=== PATIENT | male | born 1955 | race Caucasian/White ===

== ENCOUNTER 2018-10-14 12:58 | Observation (INO) | payer OTHER ==
[~2018-10-14] VITALS: Ht 160 cm; Wt 89.8 kg
[~2018-10-14 12:58] MED LIST: CIPR500T4 PO; TAMS-14 PO
[2018-10-14] MEDS ORDERED: IPRATROPIUM (NEB) 0.5 MG/2.5 ML AMP INH STA (13:25)
[2018-10-14] MEDS ORDERED: ALBUTEROL 0.083% (NEB) 2.5 MG/3 ML AMP INH STA (13:25)
--- NOTE | 2018-10-14 13:30 | ERD ---
ER Documentation Chief Complaint Chief Complaint cough, shortness of breath x 9 days HPI This is a 63-year-old male with a past medical history of hypertension [id number] diabetes mellitus and benign prostatic hypertrophy. The patient presents to the emergency department complaining of shortness of breath for the past 9 days. The patient indicates that he has had no recent travel or prolonged immobilization. He denies any swelling of his lower extremities and no calf tenderness. The patient indicates that he is unable to walk more than several steps before becoming short of breath. He also stated he had a pro ductive cough at the onset of his symptoms and coughed up a small amount of blood. However he states the hemoptysis has completely resolved as there was only one day that this occurred. He went to see his primary care physician at the onset of his symptoms. He been placed on promethazine and a Z-Arsen. Indicates however that this has not improved his shortness of breath. He had an outpatient chest radiograph performed 4 days ago with no results yet. He phoned his primary care physician but was unable to get in. Therefore he came to the emergency department as he states his symptoms have worsened. The patient does not smoke tobacco. He denies any melanotic stools or hemoptysis. He has been compliant with his medications. He said no fevers or shaking or chills. ROS All systems reviewed and are negative except as per history of present illness. Medications Home Meds Reported Medications Finasteride* (Finasteride*) 5 Mg Tablet, 5 MG PO DAILY, TAB 10/14/18 Atorvastatin Calcium (Atorvastatin Calcium) 10 Mg Tablet, 10 MG PO QHS, #30 TAB 10/14/18 Spironolactone* (Aldactone*) 25 Mg Tablet, 25 MG PO DAILY, #30 TAB 10/14/18 Potassium Chloride* (Potassium Chloride*) 20 Meq Tablet.er, 20 MEQ PO DAILY, TAB.SA 10/14/18 Furosemide* (Furosemide*) 40 Mg Tablet, 40 MG PO DAILY, TAB 10/14/18 Omeprazole* (Omeprazole*) 40 Mg Capsule.dr, 40 MG PO DAILY, #30 CAP 10/14/18 Carvedilol* (Carvedilol*) 6.25 Mg Tablet, 6.25 MG PO BID, #60 TAB 10/14/18 Terazosin Hcl* (Terazosin Hcl*) 10 Mg Capsule, 10 MG PO HS, CAP 10/14/18 Glimepiride* (Glimepiride*) 4 Mg Tablet, 4 MG PO WITH BREAKFAST, TAB 10/14/18 Metformin Hcl* (Metformin Hcl*) 1,000 Mg Tablet, 1000 MG PO WITH BREAKFAST DINNE, #60 TAB 10/14/18 Discontinued Scripts Tamsulosin Hcl* (Flomax*) 0.4 Mg Cap.er.24h, 0.4 MG PO QPM, #30 CAP Prov:NATALIIA MALONE MD 06/05/18 Ciprofloxacin Hcl* (Ciprofloxacin Hcl*) 500 Mg Tablet, 500 MG PO BID for 5 Days, TAB Prov:NATALIIA MALONE MD 06/05/18 Allergies Allergies: Coded Allergies: No Known Allergy (Unverified , 10/14/18) PMhx/Soc History of Surgery: No Anesthesia Reaction: No Hx Neurological Disorder: No Hx Respiratory Disorders: No Hx Cardiac Disorders: No Hx Psychiatric Problems: No Hx Miscellaneous Medical Probl: No Hx Alcohol Use: No Hx Substance Use: No Smoking Status: Never smoker Physical Exam Vitals Vital Signs Date Temp Pulse Resp B/P (MAP) Pulse Ox O2 O2 Flow FiO2 Time Delivery Rate 10/14/18 92 20 144/95 98 Nasal 2.0 17:16 (111) Cannula 10/14/18 Nasal 2 15:15 Cannula 10/14/18 87 20 131/91 96 Nasal 2.0 15:05 (104) Cannula 10/14/18 98 18 96 21 13:43 10/14/18 98.4 94 20 133/68 98 13:08 (89) Physical Exam Constitutional:Well-developed. Well-nourished. Patient in mild respiratory distress HEENT:Normocephalic. Atraumatic.Pupils were equal round reactive to light. Moist mucous membranes.No tonsillar exudates. Neck: No nuchal rigidity. No lymphadenopathy. No posterior cervical spine tenderness or step-offs. Respiratory: Not using accessory muscles of respiration.Lungs were clear to auscultation bilaterally. Bilateral rhonchi. No rales. No wheezing Cardiovascular: Regular rate regular rhythm.No murmurs. No rubs were appreciat ed.S1, S2 normal. Distal pulses are palpable 2+ bilaterally. GI: Abdomen was soft. Nontender. Non Distended. No pulsatile abdominal masses or bruits. No rebound. No guarding. Bowel sounds were present and normal. Muscle skeletal: Full range of motion of both the upper and lower extremities bilaterally.Normal muscle tone.No assymetrical calf tenderness or swelling. Skin: No petechia, no purpura. No lesions on the palms or the soles of the feet. No maculopapular rash. NEURO: Patient was alert, awake, orientated x3.No facial droop. Gait observed and normal with no ataxia.Speech had regular rate and rhythm. No focal neurological deficits. Result Diagram: 10/14/18 1334 10/14/18 1334 Results 24 hrs Laboratory Tests Test 10/14/18 13:25 10/14/18 13:34 10/14/18 15:48 Blood Gas Specimen Source Blood arterial Arterial Blood Date 10/14/2018 1:40:11 PM Drawn Arterial Blood pH 7.477 (Temp corrected) Arterial Blood pCO2 31.5 mmhg (Temp correct) Arterial Blood pO2 66.5 mmHG (Temp corrected) Arterial Blood HCO3 22.8 mmol/L Arterial Blood Base -0.1 mmol/L Excess Arterial Blood 92.4 mmHG Oxygen Saturation Wilfredo Test N/A Arterial Blood Gas Right Brachial Puncture Site Arterial 0.2 % Blood Carboxyhemoglobin Arterial Blood 0.3 % Methemoglobin Blood Gas A-a O2 45.5 mmHg Differential Oxyhemoglobin Percent 91.9 % Blood Gas Temperature 37.0 C Blood Gas Modality ROOM AIR FiO2 21.0 % Blood Gas Notified Whom TM Blood Gas Notified Time 10/14/2018 1:48:51 PM White Blood Count 8.1 10^3/ul Red Blood Count 4.12 10^6/ul Hemoglobin 10.6 g/dl Hematocrit 34.2 % Mean Corpuscular Volume 83.0 fl Mean Corpuscular 25.7 pg Hemoglobin Mean Corpuscular 31.0 g/dl Hemoglobin Concent Red Cell Distribution 17.5 % Width Platelet Count 328 10^3/UL Mean Platelet Volume 8.9 fl Immature Granulocytes % 0.500 % Neutrophils % 82.0 % Lymphocytes % 10.6 % Monocytes % 5.9 % Eosinophils % 0.6 % Basophils % 0.4 % Nucleated Red Blood Cells 0.0 /100WBC % Immature Granulocytes # 0.040 10^3/ul Neutrophils # 6.6 10^3/ul Lymphocytes # 0.9 10^3/ul Monocytes # 0.5 10^3/ul Eosinophils # 0.1 10^3/ul Basophils # 0.0 10^3/ul Nucleated Red Blood Cells 0.0 10^3/ul # Prothrombin Time 13.1 Sec Prothrombin Time Ratio 1.0 INR International 0.98 Normalized Ratio Activated 29.0 Sec Partial Thromboplast Time D-Dimer 1653.13 ng/ml D-Dimer Comment Sodium Level 147 mmol/L Potassium Level 4.0 mmol/L Chloride Level 108 mmol/L Carbon Dioxide Level 27 mmol/L Anion Gap 12 Blood Urea Nitrogen 19 mg/dl Creatinine 0.87 mg/dl Est Glomerular Filtrat > 60 mL/min Rate mL/min Glucose Level 126 mg/dl Calcium Level 8.6 mg/dl Total Bilirubin 0.8 mg/dl Direct Bilirubin 0.00 mg/dl Indirect Bilirubin 0.8 mg/dl Aspartate Amino 18 IU/L Transf (AST/SGOT) Alanine 20 IU/L Aminotransferase (ALT/SGP T) Alkaline Phosphatase 69 IU/L Creatine Kinase 95 IU/L Creatine Kinase Index 0.7 Creatinine Kinase MB 0.64 ng/ml (Mass) Troponin I < 0.012 ng/ml B-Type Natriuretic 4570 PG/ML Peptide Total Protein 7.0 g/dl Albumin 3.7 g/dl Globulin 3.30 g/dl Albumin/Globulin Ratio 1.12 Urine Color YELLOW Urine Clarity SLIGHTLY CLOUDY Urine pH 5.0 Urine Specific [place] 1.015 Urine Ketones NEGATIVE mg/dL Urine Nitrite NEGATIVE mg/dL Urine Bilirubin NEGATIVE mg/dL Urine Urobilinogen NEGATIVE mg/dL Urine Leukocyte Esterase NEGATIVE Víctor/ul Urine Microscopic RBC 1 /HPF Urine Microscopic WBC 1 /HPF Urine Amorphous Crystals FEW /HPF Urine Mucus FEW /HPF Urine Hemoglobin NEGATIVE mg/dL Urine Glucose NEGATIVE mg/dL Urine Total Protein NEGATIVE mg/dl Current Medications Medications Dose Sig/Tyshawn Start Time Status Last (Trade) Ordered Route PRN Stop Time Admin Dose Reason Admin Albuterol 5 mg ONCE STAT 10/14/18 DC 10/14/18 (Proventil INH 13:25 13:43 0.083% (Neb)) 10/14/18 13:27 Ipratropium 0.5 mg ONCE STAT 10/14/18 DC 10/14/18 [place] INH 13:25 13:43 (Atrovent 10/14/18 13:27 0.02% (Neb)) Furosemide 40 mg ONCE ONCE 10/14/18 DC 10/14/18 (Lasix) IV 16:30 16:35 10/14/18 16:31 IV Flush 10 ml STK-MED 10/14/18 DC 10/14/18 (NS 10 ml) ONCE .ROUTE 16:31 16:52 10/14/18 16:32 Sodium 100 ml @ ud STK-MED 10/14/18 DC 10/14/18 Chloride ONCE .ROUTE 16:31 16:52 10/14/18 16:32 Iohexol 100 ml @ ud STK-MED 10/14/18 DC 10/14/18 ONCE .ROUTE 16:31 16:52 10/14/18 16:32 Procedures/MDM The patient presented to the emergency department with shortness of breath. My differential diagnosis included but was not limited to upper airway obstruction, CHF, pulmonary embolism, cardiac ischemia, pneumonia, pneumothorax, anemia, drug overdose, pulmonary edema, COPD or asthma. Patient placed on chronic monitor continuous pulse oximetry and IV access was established by nursing staff. The patient a chest radiograph which showed no infiltrates no pneumothorax and pleural effusions. The patient was a low pretest probability according to the Wells criteria for pulmonary embolism. Therefore obtained a d-dimer. This was elevated and a CT scan of the chest showed no evidence of a pulmonary embolism however there was findings consistent with new onset congestive heart failure that was also confirmed on the chest radiograph with pulmonary vascular congestion. Given that the patient was in mild respiratory distress with hypoxia the patient was given nebulizer treatments and IV Lasix. BNP was elevated. Observation Note: Time: 5 hours Family Hx: No Hypertension Evaluation: Multiple exams showed no improvement of the patient's symptoms. He required continuous nebulizer treatments. Therefore I did feel he required admission for observation for new onset congestive heart failure. He will be admitted to the [place] physician Dr. Miller. As obtained an arterial blood gas that showed a low PO2. The patient was not acidotic. Critical Care: Time: 35 minutes Treatments/Evaluations: Close monitoring and treatment of unstable vital signs, cardiorespiratory, and neurologic status, while maintaining tight balance of fluid, respiratory, and cardiac interventions. Time does not include performing any of the above billable procedures. Departure Diagnosis: Primary Impression: CHF (congestive heart failure) Heart failure type: unspecified Heart failure chronicity: acute Qualified Codes: I50.9 - Heart failure, unspecified Condition: Serious NATALIIA MALONE MD Oct 14, 2018 13:30
[2018-10-14] MEDS ORDERED: GLIM4TAB PO (13:55)
[2018-10-14] MEDS ORDERED: METF100010 PO (13:55)
[2018-10-14] MEDS ORDERED: CARV6.2579 PO (13:56)
[2018-10-14] MEDS ORDERED: TERA10CA3 PO (13:56)
[2018-10-14] MEDS ORDERED: OMEP40CA6 PO (13:56)
[2018-10-14] MEDS ORDERED: FURO40TA4 PO (13:57)
[2018-10-14] MEDS ORDERED: POTA20TA96 PO (13:57)
[2018-10-14] MEDS ORDERED: SPIR25TA PO (13:57)
[2018-10-14] MEDS ORDERED: ATOR10TA65 PO (13:58)
[2018-10-14] MEDS ORDERED: FINA5TAB4 PO (13:58)
[2018-10-14] MEDS ORDERED: FUROSEMIDE 40 MG INJ IV ONE (16:30)
[2018-10-14] MEDS ORDERED: SOD CHLORIDE 0.9% 100 ML ONE (16:31)
[2018-10-14] MEDS ORDERED: IOHEXOL 100 ML ONE (16:31)
[2018-10-14] MEDS ORDERED: ACETAMINOPHEN 325 MG TAB PO PRN (19:00)
[2018-10-14] MEDS ORDERED: ONDANSETRON 4 MG INJ IV PRN (19:00)
[2018-10-14] MEDS ORDERED: GLUCOSE GEL 15 GRAM TUBE PO PRN ×2 (21:00)
[2018-10-14] MEDS ORDERED: DOCUSATE SODIUM 100 MG CAP PO PRN (21:00)
[2018-10-14] MEDS ORDERED: DEXTROSE 50% 50 ML SYRINGE IV PRN ×2 (21:00)
[2018-10-14] MEDS ORDERED: GLUCAGON 1 MG INJ IM PRN (21:00)
[2018-10-14] MEDS ORDERED: GLUCOSE GEL 15 GRAM TUBE BUCCAL PRN (21:00)
[2018-10-14] MEDS ORDERED: NACL 0.9% 3 ML SYG IV SCH (21:00)
[2018-10-14] MEDS: ATORVASTATIN 10 MG TAB PO SCH ×2 (21:00→21:51)
[2018-10-14] MEDS ORDERED: ONDANSETRON 4 MG TAB PO PRN (21:00)
[2018-10-14] MEDS: FAMOTIDINE 20 MG TAB PO SCH (21:52)
[2018-10-14] MEDS: TERAZOSIN 5 MG CAP PO SCH (21:52)
[2018-10-14] MEDS: ACCU-CHEK XX SCH (21:53)
[2018-10-14] MEDS: ENOXAPARIN 40 MG/0.4 ML SYG SC SCH (21:53)
[2018-10-15] VITALS (9 sets, daily range): BP systolic 115–141; BP diastolic 59–87; PULSE 83–178; RESP 18–20; Ht 160 cm; Wt 89.8 kg
[2018-10-15] MEDS: ACCU-CHEK XX SCH ×4 (06:23→21:26)
[2018-10-15] MEDS ORDERED: FUROSEMIDE 40 MG TAB PO SCH (09:00)
[2018-10-15] MEDS ORDERED: POTASSIUM CHLORIDE (SR) 20 MEQ TAB PO SCH (09:00)
[2018-10-15] MEDS: GLIMEPIRIDE 4 MG TAB PO SCH (09:12)
[2018-10-15] MEDS: SPIRONOLACTONE 25 MG TAB PO SCH (09:13)
[2018-10-15] MEDS: metFORMIN 500 MG TAB PO SCH ×2 (09:13→17:57)
[2018-10-15] MEDS: FINASTERIDE 5 MG TAB PO SCH (09:14)
[2018-10-15] MEDS: FAMOTIDINE 20 MG TAB PO SCH ×2 (09:15→20:49)
[2018-10-15] MEDS ORDERED: FUROSEMIDE 40 MG INJ IV SCH (10:00)
--- NOTE | 2018-10-15 12:06 | HP ---
DATE OF ADMISSION: 10/14/2018 CHIEF COMPLAINT: Shortness of breath. HISTORY OF PRESENT ILLNESS: A 63-year-old male with history of hypertension, chronic congestive heart failure and type 2 diabetes mellitus, presented to emergency room with complaint of shortness of nan ath for the last 9 days prior to admission. The patient denies any chest pain. No lower extremity s welling her tenderness. He has had ICD placement in the past. He denies any history of heart attack . Patient has not been seeing his extrusion former. PAST MEDICAL HISTORY: 1. Hypertension. 2. Chronic congestive heart failure. 3. Type 2 diabetes mellitus. 4. Benign prostatic hypertrophy. PAST SURGICAL HISTORY: Status post ICD placement. MEDICATIONS PRIOR TO ADMISSION: 1. Finasteride 5 mg daily. 2. Lipitor 10 mg at bedtime. 3. Spironolactone 25 mg daily. 4. Potassium chloride 20 mEq daily. 5. Lasix 40 mg daily. 6. Omeprazole 40 mg daily. 7. Carvedilol 6.25 mg b.i.d. 8. 10 mg daily. 9. Glimepiride 4 mg daily. 10. Metformin 1000 mg b.i.d. ALLERGIES: PATIENT HAS NO KNOWN DRUG ALLERGIES. SOCIAL HISTORY: Patient denies tobacco or alcohol use. PHYSICAL EXAMINATION: GENERAL: Well-developed, well-nourished male who is in no apparent distress. VITAL SIGNS: Stable. He is afebrile. HEENT: Extraocular muscles intact. Pupils are equal and reactive to light bilaterally. Sclerae are anicteric. Oropharynx is clear and moist. NECK: Supple, no JVD, no carotid bruits. LUNGS: Mild bibasilar crackles. CARDIAC: Regular rate and rhythm. No murmurs or gallops. ABDOMEN: Soft, nontender, nondistended, normoactive bowel sounds. EXTREMITIES: No clubbing, cyanosis, or edema. NEUROLOGICAL: Nonfocal. LABORATORY DATA: Sodium 148, potassium 3.4, chloride 108, bicarbonate 30, BUN 22, creatinine 0.87. Hemoglobin A1c is 6.9. TSH is normal at 3.3. White blood cell count is 8.1, hemoglobin is 10.6, plat elet count is 328, MCV is 83. CT pulmonary angiogram did not show any evidence of pulmonary embolus. Findings are consistent with congestive heart failure. ASSESSMENT: 1. A 63-year-old male with acute on chronic systolic congestive heart failure exacerbation. 2. Presumed history of cardiomyopathy. 3. Status post ICD placement. 4. Hypertension. 5. Type 2 diabetes mellitus. 6. Benign prostatic hyperplasia. PLAN: 1. Place in tele observation, IV Lasix 40 mg b.i.d., increase potassium supplementation to 20 mEq p. o. b.i.d. Resume home medications, 2D echo. 2. Cardiology consultation was requested. Dictated By: KELVIN ROSS/VIVIAN Conf#: [id number] DID#: [id number] CC: CAROL PAUL;*EndCC*
[2018-10-15] MEDS: ACETAMINOPHEN 325 MG TAB PO PRN (12:32)
--- NOTE | 2018-10-15 14:50 | CONS ---
Assessment/Plan Cardiology NYHA: II Heart Failure Type: Acute on Chronic Assessment/Plan Hospital Course (Demo Recall) Acute decompensated congestive heart failure History of ICD Diabetes Hypertension Patient presents with progressive worsening shortness of breath over the past 10 days. Serial cardiac enzymes are negative, ECG with no significant ischemic abnormalities, CT chest with evidence of pulmonary vascular congestion Would adjust diuretics, blood pressure control, check echocardiogram Maintain potassium above 4.0 and magnesium above 2.0 Consultation Date/Type/Reason Admit Date/Time Oct 14, 2018 at 20:45 Type of Consult Cardiology Reason for Consultation Shortness of breath Date/Time of Note DATE: 10/15/18 TIME: 14:45 Hx of Present Illness This is a 63-year-old male with past medical history of congestive heart failure status post ICD, hypertension who presents with progressive worsening shortness of breath of the past 10 days. Symptoms are worse with exertion and improved at rest. Denies any exertional chest pain, dizziness or lightheadedness. He tells me he is compliant with his medications and with low-sodium diet. He does not see a coil former as an outpatient. Denies any fevers or chills, denies any dizziness or lightheadedness, denies any abdominal pain. His symptoms have improved after admission medications received in house. 12 point review of systems was performed with all pertinent positives and negatives mentioned above and all else is negative Past Medical History Medical History: congestive heart failure, diabetes, high cholesterol, hypertension Home Meds Reported Medications Finasteride* (Finasteride*) 5 Mg Tablet, 5 MG PO DAILY, TAB 10/14/18 Atorvastatin Calcium (Atorvastatin Calcium) 10 Mg Tablet, 10 MG PO QHS, #30 TAB 10/14/18 Spironolactone* (Aldactone*) 25 Mg Tablet, 25 MG PO DAILY, #30 TAB 10/14/18 Potassium Chloride* (Potassium Chloride*) 20 Meq Tablet.er, 20 MEQ PO DAILY, TAB.SA 10/14/18 Furosemide* (Furosemide*) 40 Mg Tablet, 40 MG PO DAILY, TAB 10/14/18 Omeprazole* (Omeprazole*) 40 Mg Capsule.dr, 40 MG PO DAILY, #30 CAP 10/14/18 Carvedilol* (Carvedilol*) 6.25 Mg Tablet, 6.25 MG PO BID, #60 TAB 10/14/18 Terazosin Hcl* (Terazosin Hcl*) 10 Mg Capsule, 10 MG PO HS, CAP 10/14/18 Glimepiride* (Glimepiride*) 4 Mg Tablet, 4 MG PO WITH BREAKFAST, TAB 10/14/18 Metformin Hcl* (Metformin Hcl*) 1,000 Mg Tablet, 1000 MG PO WITH BREAKFAST DINNE, #60 TAB 10/14/18 Discontinued Scripts Tamsulosin Hcl* (Flomax*) 0.4 Mg Cap.er.24h, 0.4 MG PO QPM, #30 CAP Prov:NATALIIA MALONE MD 06/05/18 Ciprofloxacin Hcl* (Ciprofloxacin Hcl*) 500 Mg Tablet, 500 MG PO BID for 5 Days, TAB Prov:NATALIIA MALONE MD 06/05/18 Medications Current Medications Atorvastatin Calcium (Lipitor) 10 mg QHS PO ; Start 10/14/18 at 21:00 Carvedilol (Coreg) 6.25 mg BID PO Last administered on 10/15/18at 09:46; Admin Dose 6.25 MG; Start 10/14/18 at 21:00 Finasteride (Proscar) 5 mg DAILY PO Last administered on 10/15/18at 09:14; Admin Dose 5 MG; Start 10/15/18 at 09:00 Glimepiride (Amaryl) 4 mg WITH BREAKFAST PO Last administered on 10/15/18at 09:12; Admin Dose 4 MG; Start 10/15/18 at 08:00 Metformin HCl (Glucophage) 1,000 mg WITH BREAKFAST DINNE PO Last administered on 10/15/18at 09:13; Admin Dose 1,000 MG; Start 10/15/18 at 08:00 Spironolactone (Aldactone) 25 mg DAILY PO Last administered on 10/15/18at 09:13; Admin Dose 25 MG; Start 10/15/18 at 09:00 Terazosin HCl (Hytrin) 10 mg HS PO Last administered on 10/14/18at 21:52; Admin Dose 10 MG; Start 10/14/18 at 21:00 Diagnostic Test (Pha) (Accu-Chek) 1 ea AC MEALS AND BEDTIME XX Last administered on 10/15/18at 11:43; Admin Dose 1 EA; Start 10/14/18 at 21:00 Miscellaneous Information 1 ea NOTE XX ; Start 10/14/18 at 21:00 Glucose (Glutose) 15 gm Q15M PRN PO DECREASED GLUCOSE; Start 10/14/18 at 21:00 Glucose (Glutose) 22.5 gm Q15M PRN PO DECREASED GLUCOSE; Start 10/14/18 at 21:00 Dextrose (D50w Syringe) 25 ml Q15M PRN IV DECREASED GLUCOSE; Start 10/14/18 at 21:00 Dextrose (D50w Syringe) 50 ml Q15M PRN IV DECREASED GLUCOSE; Start 10/14/18 at 21:00 Glucagon (Glucagen) 1 mg Q15M PRN IM DECREASED GLUCOSE; Start 10/14/18 at 21:00 Glucose (Glutose) 15 gm Q15M PRN BUCCAL DECREASED GLUCOSE; Start 10/14/18 at 21:00 IV Flush (NS 3 ml) 3 ml PER PROTOCOL IV ; Start 10/14/18 at 21:00 Ondansetron HCl (Zofran Tab) 4 mg Q6H PRN PO NAUSEA/VOMITING; Start 10/14/18 at 21:00 Acetaminophen (Tylenol Tab) 650 mg Q6H PRN PO .PAIN 1-3 OR TEMP Last administered on 10/15/18at 12:32; Admin Dose 650 MG; Start 10/14/18 at 21:00 Docusate Sodium (Colace) 100 mg Q12H PRN PO .CONSTIPATION; Start 10/14/18 at 21:00 Famotidine (Pepcid) 20 mg Q12 PO Last administered on 10/15/18at 09:15; Admin Dose 20 MG; Start 10/14/18 at 21:00 Enoxaparin Sodium (Lovenox) 40 mg DAILY SC Last administered on 10/14/18at 21:53; Admin Dose 40 MG; Start 10/14/18 at 21:00 Furosemide (Lasix) 40 mg Q12 IV Last administered on 10/15/18at 12:26; Admin Dose 40 MG; Start 10/15/18 at 10:00 Potassium Chloride (Klor-Con 20) 20 meq BID PO ; Start 10/15/18 at 21:00 Allergies: Coded Allergies: No Known Allergy (Unverified , 10/14/18) Past Surgical History Past Surgical Hx: other (Likely ICD) Family History Significant Family History: no pertinent family hx Social History Alcohol Use: none Smoking Status: Never smoker Exam/Review of Systems Vital Signs Vitals Vital Signs Date Temp Pulse Resp B/P (MAP) Pulse Ox O2 O2 Flow FiO2 Time Delivery Rate 10/15/18 91 12:00 10/15/18 97.5 20 126/81 95 Room Air 11:25 (96) 10/15/18 2.0 11:00 10/14/18 21 13:43 Intake and Output 10/14/18 10/14/18 10/15/18 1515:00 23:00 07:00 OutputOutput Total 1800 ml 100 ml BalanceBalance -1800 ml -100 ml Exam Constitutional: alert, oriented, well developed Head: normocephalic Respiratory: other (Coarse breath sounds bilaterally, mild scattered crackles, no wheezing) Cardiovascular: regular rate and rhythm (S1-S2 heard) Gastrointestinal: soft, non-tender, bowel sounds Extremities: edema (Trace) Labs Result Diagram: 10/14/18 1334 10/15/18 0508 Results 24hrs Laboratory Tests Test 10/14/18 15:48 10/14/18 21:05 10/14/18 21:49 10/15/18 05:08 Urine Color YELLOW Urine Clarity SLIGHTLY CLOUDY A Urine pH 5.0 Urine Specific 1.015 [place] Urine Ketones NEGATIVE Urine Nitrite NEGATIVE Urine Bilirubin NEGATIVE Urine NEGATIVE Urobilinogen Urine Leukocyte NEGATIVE Esterase Urine Microscopic 1 RBC Urine Microscopic 1 WBC Urine Amorphous FEW A Crystals Urine Mucus FEW A Urine Hemoglobin NEGATIVE Urine Glucose NEGATIVE Urine Total NEGATIVE Protein Troponin I < 0.012 Bedside Glucose 131 Sodium Level 148 H Potassium Level 3.4 L Chloride Level 108 Carbon Dioxide 30 Level Anion Gap 10 Blood Urea 22 H Nitrogen Creatinine 0.87 Est Glomerular > 60 Filtrat Rate mL/min Glucose Level 120 Hemoglobin A1c 6.9 H Calcium Level 8.6 Total Bilirubin 0.7 Direct Bilirubin 0.00 Indirect 0.7 Bilirubin Aspartate Amino 19 Transf (AST/SGOT) Alanine 28 Aminotransferase (ALT/SGPT) Alkaline 68 Phosphatase Total Protein 6.6 Albumin 3.4 Globulin 3.20 Albumin/Globulin 1.06 Ratio Triglycerides 127 Level Cholesterol Level 145 LDL Cholesterol, 99 Calculated HDL Cholesterol 21 L Cholesterol/HDL 6.9 Ratio Thyroid 3.340 Stimulating Hormone (TSH) Test 10/15/18 06:21 10/15/18 11:41 Bedside Glucose 131 179 Imaging Imaging ECG demonstrates sinus rhythm at 93 bpm, QRS 104 ms, nonspecific ST abnormalities Medications Medications Current Medications Atorvastatin Calcium (Lipitor) 10 mg QHS PO ; Start 10/14/18 at 21:00 Carvedilol (Coreg) 6.25 mg BID PO Last administered on 10/15/18 09:46; Admin Dose 6.25 MG; Start 10/14/18 at 21:00 Finasteride (Proscar) 5 mg DAILY PO Last administered on 10/15/18 09:14; Admin Dose 5 MG; Start 10/15/18 at 09:00 Glimepiride (Amaryl) 4 mg WITH BREAKFAST PO Last administered on 10/15/18 09:12; Admin Dose 4 MG; Start 10/15/18 at 08:00 Metformin HCl (Glucophage) 1,000 mg WITH BREAKFAST DINNE PO Last administered on 10/15/18 09:13; Admin Dose 1,000 MG; Start 10/15/18 at 08:00 Spironolactone (Aldactone) 25 mg DAILY PO Last administered on 10/15/18 09:13; Admin Dose 25 MG; Start 10/15/18 at 09:00 Terazosin HCl (Hytrin) 10 mg HS PO Last administered on 10/14/18 21:52; Admin Dose 10 MG; Start 10/14/18 at 21:00 Diagnostic Test (Pha) (Accu-Chek) 1 ea AC MEALS AND BEDTIME XX Last administered on 10/15/18at 11:43; Admin Dose 1 EA; Start 10/14/18 at 21:00 Miscellaneous Information 1 ea NOTE XX ; Start 10/14/18 at 21:00 Glucose (Glutose) 15 gm Q15M PRN PO DECREASED GLUCOSE; Start 10/14/18 at 21:00 Glucose (Glutose) 22.5 gm Q15M PRN PO DECREASED GLUCOSE; Start 10/14/18 at 21:00 Dextrose (D50w Syringe) 25 ml Q15M PRN IV DECREASED GLUCOSE; Start 10/14/18 at 21:00 Dextrose (D50w Syringe) 50 ml Q15M PRN IV DECREASED GLUCOSE; Start 10/14/18 at 21:00 Glucagon (Glucagen) 1 mg Q15M PRN IM DECREASED GLUCOSE; Start 10/14/18 at 21:00 Glucose (Glutose) 15 gm Q15M PRN BUCCAL DECREASED GLUCOSE; Start 10/14/18 at 21:00 IV Flush (NS 3 ml) 3 ml PER PROTOCOL IV ; Start 10/14/18 at 21:00 Ondansetron HCl (Zofran Tab) 4 mg Q6H PRN PO NAUSEA/VOMITING; Start 10/14/18 at 21:00 Acetaminophen (Tylenol Tab) 650 mg Q6H PRN PO .PAIN 1-3 OR TEMP Last administered on 10/15/18at 12:32; Admin Dose 650 MG; Start 10/14/18 at 21:00 Docusate Sodium (Colace) 100 mg Q12H PRN PO .CONSTIPATION; Start 10/14/18 at 21:00 Famotidine (Pepcid) 20 mg Q12 PO Last administered on 10/15/18at 09:15; Admin Dose 20 MG; Start 10/14/18 at 21:00 Enoxaparin Sodium (Lovenox) 40 mg DAILY SC Last administered on 10/14/18at 21:53; Admin Dose 40 MG; Start 10/14/18 at 21:00 Furosemide (Lasix) 40 mg Q12 IV Last administered on 10/15/18at 12:26; Admin Dose 40 MG; Start 10/15/18 at 10:00 Potassium Chloride (Klor-Con 20) 20 meq BID PO ; Start 10/15/18 at 21:00 Osmel Renner DO Oct 15, 2018 14:49
[2018-10-15] MEDS ORDERED: BUMETANIDE 3 MG in DEXTROSE 5% 18 ML IV ONE (15:00)
--- NOTE | 2018-10-15 18:23 | RADRPT ---
Echocardiogram Report Patient Name: LOKESH DOMINGUEZPatient ID: [id number] : 1955 (63y 5m)Study Date: 10/15/2018 1:38:11 PM Gender: MAccession #: [id number] Tech: Location: [facility] Ref.Physician: KELVIN MAZARIEGOS Height(Cm): BSA: Weight(Kg): Quality: GoodOrder Physician: KELVIN MAZARIEGOS Account #: Procedures: Echocardiographic Report: Transthoracic echocardiogram with complete 2D, M-Mode, and doppler examination. Indications: Evaluate Left Ventricular function. Measurements: 2D/M Mode Doppler Measurement Value Normal Range Measurement Value Normal Range LA Area2 23.7 cm2 IGOR Vmax 1.8 [ 2.0 - 4.0 ] cm2 RVDd 2D 4.0 [ 2.0 - 4.2 ] cm AV Peak Devang 1.3 [ 100.0 - 170.0 ] cm/sec LVIDd 2D 7.1 [ 4.2 - 5.8 ] cm AV Peak PG 7.0 [ 2.0 - 9.0 ] mmHg LVIDs 2D 6.0 [ 2.5 - 4.0 ] cm LVOT Peak Devang 0.7 [ 70.0 - 110.0 ] cm/sec LVPWd 2D 0.8 [ 0.6 - 1.0 ] cm LVOT Peak PG 2.0 [ 2.0 - 6.0 ] mmHg IVSd 2D 1.1 [ 0.6 - 1.0 ] cm PV Peak Devang 1.5 [ 40.0 - 80.0 ] cm/sec IVS/LVPW 2D 1.4 ratio PV Peak PG 9.0 mmHg LA Dimen 2D 5.2 [ 3.0 - 4.0 ] cm LVOT Area 3.1 cm2 Findings: Left Ventricle: Normal left ventricular wall thickness. Moderate enlargement of left ventricle cavity. Severe left ventricular systolic dysfunction. Ejection fraction is visually estimated at 30 %. Tissue Doppler/Mitral Doppler indices are consistent with pseudonormalization with mildly elevated left atrial pressure (Stage II diastolic dysfunction). Right Ventricle: Normal right ventricular systolic function. Mild enlargement of right ventricle. Left Atrium: There is moderate enlargement of left atrium. Right Atrium: The right atrium is normal in size. Mitral Valve: Normal appearance of the mitral valve. Mild to moderate mitral valve regurgitation. Aortic Valve: Normal appearance of the aortic valve. No hemodynamically significant aortic stenosis by doppler. Trace aortic valve regurgitation. Tricuspid Valve: Normal appearance of the tricuspid valve. The estimated Peak RVSP is 61 mmHg. There is mild to moderate tricuspid regurgitation. Pericardium: Normal pericardium with no significant pericardial effusion. Aorta: Normal aortic root. IVC: Normal size and normal respiratory collapse consistent with normal right atrial pressure. Conclusions: Normal left ventricular wall thickness. Moderate enlargement of left ventricle cavity. Severe left ventricular systolic dysfunction. Ejection fraction is visually estimated at 30 %. Tissue Doppler/Mitral Doppler indices are consistent with pseudonormalization with mildly elevated left atrial pressure (Stage II diastolic dysfunction). Normal right ventricular systolic function. Mild enlargement of right ventricle. There is moderate enlargement of left atrium. The right atrium is normal in size. Mild to moderate mitral valve regurgitation. No hemodynamically significant aortic stenosis by doppler. Trace aortic valve regurgitation. The estimated Peak RVSP is 61 mmHg. There is mild to moderate tricuspid regurgitation. Normal pericardium with no significant pericardial effusion. Electronically Signed By: Osmel Renner 2018-10-15 18:22:57 PDT
[2018-10-15] MEDS: POTASSIUM CHLORIDE (SR) 20 MEQ TAB PO SCH (20:48)
[2018-10-15] MEDS: TERAZOSIN 5 MG CAP PO SCH (20:49)
[2018-10-15] MEDS: ATORVASTATIN 10 MG TAB PO SCH (20:49)
[2018-10-15] MEDS: ENOXAPARIN 40 MG/0.4 ML SYG SC SCH (20:52)
[2018-10-16] VITALS (10 sets, daily range): BP systolic 110–138; BP diastolic 66–86; PULSE 75–90; RESP 18–20
[2018-10-16] MEDS: BUMETANIDE 1 MG INJ IV SCH ×2 (06:21→17:38)
[2018-10-16] MEDS: ACCU-CHEK XX SCH ×3 (07:51→16:56)
[2018-10-16] MEDS: GLIMEPIRIDE 4 MG TAB PO SCH (08:23)
[2018-10-16] MEDS: SPIRONOLACTONE 25 MG TAB PO SCH (08:23)
[2018-10-16] MEDS: FAMOTIDINE 20 MG TAB PO SCH (08:23)
[2018-10-16] MEDS: FINASTERIDE 5 MG TAB PO SCH (08:24)
[2018-10-16] MEDS: POTASSIUM CHLORIDE (SR) 20 MEQ TAB PO SCH (08:24)
[2018-10-16] MEDS: metFORMIN 500 MG TAB PO SCH ×2 (08:29→17:38)
[2018-10-16] MEDS: ENOXAPARIN 40 MG/0.4 ML SYG SC SCH (08:33)
[2018-10-16] MEDS ORDERED: FURO40TA4 PO (10:05)
[2018-10-16] MEDS ORDERED: POTA20TA96 PO (10:05)
[2018-10-16] MEDS ORDERED: APIX2.5T PO (10:05)
--- NOTE | 2018-10-16 10:06 | PDOCDIS ---
Discharge Instructions CONDITION [id number] Patient Condition: [id number] Good HOME CARE INSTRUCTIONS: [id number] Diet Instructions: [id number] Activity Restrictions: [id number] No Restrictions FOLLOW UP/APPOINTMENTS Follow-up Plan pcp [address] Renner 1 week OTHER ORDERS: Other Orders: fluid restriction 1200 cc per day KELVIN MAZARIEGOS MD Oct 16, 2018 10:06
[2018-10-16] MEDS ORDERED: LISI10TA2 PO (11:45)
[2018-10-16] MEDS ORDERED: POTA20TA15 PO (11:46)
[2018-10-16] MEDS: ACETAMINOPHEN 325 MG TAB PO PRN (12:48)
--- NOTE | 2018-10-16 14:27 | CONS ---
Assessment/Plan Cardiology NYHA: II Heart Failure Type: Acute on Chronic Assessment/Plan Assessment/Plan (Daily) Acute decompensated congestive heart failure History of ICD Diabetes Hypertension Patient presents with progressive worsening shortness of breath over the past 10 days. Serial cardiac enzymes are negative, ECG with no significant ischemic abnormalities, CT chest with evidence of pulmonary vascular congestion Would adjust diuretics, blood pressure control, check echocardiogram Maintain potassium above 4.0 and magnesium above 2.0 Consultation Date/Type/Reason Admit Date/Time Oct 14, 2018 at 20:45 Initial Consult Date Type of Consult Cardiology Date/Time of Note DATE: 10/16/18 TIME: 14:26 24 HR Interval Summary Free Text/Dictation the apteint with no cahgne Exam/Review of Systems Vital Signs Vitals Vital Signs Date Temp Pulse Resp B/P (MAP) Pulse Ox O2 O2 Flow FiO2 Time Delivery Rate 10/16/18 76 12:09 10/16/18 97.8 20 117/71 97 Room Air 11:03 (86) 10/16/18 2.0 07:55 10/14/18 21 13:43 Intake and Output 10/15/18 10/15/18 10/16/18 1515:00 23:00 07:00 IntakeIntake Total 2118 ml 940 ml OutputOutput Total 1650 ml 600 ml BalanceBalance 468 ml 340 ml Labs Result Diagram: 10/14/18 1334 10/16/18 0553 Results 24hrs Laboratory Tests Test 10/15/18 17:53 10/15/18 20:04 10/16/18 05:53 10/16/18 07:41 Bedside Glucose 93 73 132 Sodium Level 146 H Potassium Level 3.4 L Chloride Level 108 Carbon Dioxide Level 31 Anion Gap 7 Blood Urea Nitrogen 26 H Creatinine 0.98 Est Glomerular > 60 Filtrat Rate mL/min Glucose Level 131 Calcium Level 8.7 Magnesium Level 2.0 Test 10/16/18 11:20 Bedside Glucose 156 Medications Medications Current Medications Atorvastatin Calcium (Lipitor) 10 mg QHS PO Last administered on 10/15/18at 20:49; Admin Dose 10 MG; Start 10/14/18 at 21:00 Carvedilol (Coreg) 6.25 mg BID PO Last administered on 10/16/18at 08:25; Admin Dose 6.25 MG; Start 10/14/18 at 21:00 Finasteride (Proscar) 5 mg DAILY PO Last administered on 10/16/18 08:24; Admin Dose 5 MG; Start 10/15/18 at 09:00 Glimepiride (Amaryl) 4 mg WITH BREAKFAST PO Last administered on 10/16/18 08:23; Admin Dose 4 MG; Start 10/15/18 at 08:00 Metformin HCl (Glucophage) 1,000 mg WITH BREAKFAST DINNE PO Last administered on 10/16/18 08:29; Admin Dose 1,000 MG; Start 10/15/18 at 08:00 Spironolactone (Aldactone) 25 mg DAILY PO Last administered on 10/16/18 08:23; Admin Dose 25 MG; Start 10/15/18 at 09:00 Terazosin HCl (Hytrin) 10 mg HS PO Last administered on 10/15/18 20:49; Admin Dose 10 MG; Start 10/14/18 at 21:00 Diagnostic Test (Pha) (Accu-Chek) 1 ea AC MEALS AND BEDTIME XX Last administered on 10/16/18 11:23; Admin Dose 1 EA; Start 10/14/18 at 21:00 Miscellaneous Information 1 ea NOTE XX ; Start 10/14/18 at 21:00 Glucose (Glutose) 15 gm Q15M PRN PO DECREASED GLUCOSE; Start 10/14/18 at 21:00 Glucose (Glutose) 22.5 gm Q15M PRN PO DECREASED GLUCOSE; Start 10/14/18 at 21:00 Dextrose (D50w Syringe) 25 ml Q15M PRN IV DECREASED GLUCOSE; Start 10/14/18 at 21:00 Dextrose (D50w Syringe) 50 ml Q15M PRN IV DECREASED GLUCOSE; Start 10/14/18 at 21:00 Glucagon (Glucagen) 1 mg Q15M PRN IM DECREASED GLUCOSE; Start 10/14/18 at 21:00 Glucose (Glutose) 15 gm Q15M PRN BUCCAL DECREASED GLUCOSE; Start 10/14/18 at 21:00 IV Flush (NS 3 ml) 3 ml PER PROTOCOL IV ; Start 10/14/18 at 21:00 Ondansetron HCl (Zofran Tab) 4 mg Q6H PRN PO NAUSEA/VOMITING; Start 10/14/18 at 21:00 Acetaminophen (Tylenol Tab) 650 mg Q6H PRN PO .PAIN 1-3 OR TEMP Last administered on 10/16/18 12:48; Admin Dose 650 MG; Start 10/14/18 at 21:00 Docusate Sodium (Colace) 100 mg Q12H PRN PO .CONSTIPATION; Start 10/14/18 at 21:00 Famotidine (Pepcid) 20 mg Q12 PO Last administered on 10/16/18 08:23; Admin Dose 20 MG; Start 10/14/18 at 21:00 Enoxaparin Sodium (Lovenox) 40 mg DAILY SC Last administered on 10/16/18 08:33; Admin Dose 40 MG; Start 10/14/18 at 21:00 Potassium Chloride (Klor-Con 20) 20 meq BID PO Last administered on 10/16/18 08:24; Admin Dose 20 MEQ; Start 10/15/18 at 21:00 Bumetanide (Bumex) 1 mg BID DIURETICS IV Last administered on 10/16/18 06:21; Admin Dose 1 MG; Start 10/16/18 at 06:00 DEMETRI CONNER MD Oct 16, 2018 14:27
--- NOTE | 2018-10-17 00:56 | DS ---
DATE OF ADMISSION: 10/14/2018 DATE OF DISCHARGE: 10/16/2018 DISCHARGE DIAGNOSES: 1. A 63-year-old male with acute on chronic systolic congestive heart failure exacerbation. 2. Severe cardiomyopathy with ejection fraction of 30%. 3. Status post ICD placement. 4. Hypertension. 5. Type 2 diabetes mellitus. 6. Benign prostatic hyperplasia. PROCEDURES DURING HOSPITALIZATION: 2D echo. HISTORY OF PRESENT ILLNESS: A 63-year-old male with a history of cardiomyopathy, chronic congestive heart failure, hypertension and type 2 diabetes mellitus, presented to emergency room with complaint of shortness of breath for the last 9 days prior to admission. The patient denied any chest pain. P ulmonary embolus was ruled out. There was no evidence of lower extremity swelling or tenderness. Th e patient was seen in consultation by cardiology. A 2D echo showed EF of 30%. His symptoms improved with IV Lasix and IV Bumex. The patient is in a stable condition for discharge. MEDICATIONS ON DISCHARGE: Include followin. Lipitor 10 mg p.o. at bedtime. 2. Carvedilol 6.25 mg p.o. b.i.d. 3. Finasteride 5 mg daily. 4. Glimepiride 4 mg daily. 5. Metformin 1000 mg b.i.d. 6. Omeprazole 40 mg daily. 7. Spironolactone 25 mg daily. 8. ____ 10 mg at bedtime. 9. Potassium supplementation 20 mEq b.i.d. 10. Lasix 40 mg b.i.d. FOLLOWUP: 1. Follow up with PCP in 1 week. 2. Follow up with Dr. Renner in 1 week. Dictated By: KELVIN ROSS/VIVIAN Conf#: [id number] DID#: [id number] CC: KATIE RENNER DO; CAROL PAUL MD;*EndCC*
== END 2018-10-16 18:55 | disposition home or self-care (01) ==
LOC: E/R 12:58 → TEL 20:45
PROVIDERS: ADMIT Internal Medicine; ATTEND Internal Medicine
DX: I11.0 Hypertensive heart disease with heart failure (principal); I50.23 Acute on chronic systolic (congestive) heart failure; I42.9 Cardiomyopathy, unspecified; N40.0 Benign prostatic hyperplasia without lower urinary tract symptoms; E11.9 Type 2 diabetes mellitus without complications; Z79.84 Long term (current) use of oral hypoglycemic drugs; Z95.0 Presence of cardiac pacemaker
CPT/HCPCS: 36600; 71045; 71275; 80048; 80053; 80061; 81001; 82550; 82553; 82803; 82962; 83036; 83735; 83880; 84443; 84484; 85025; 85378; 85610; 85730; 93005; 93306; 94664; 96374; 99285; G0378; J1650; J1940; Q9967; 81003